=== PATIENT | male | born 1995 | race Hispanic/Latino ===

== ENCOUNTER 2018-02-05 01:02 | Emergency (ER) | payer BC ==
[2018-02-05 01:14] VITALS: O2SAT 100
[2018-02-05] MEDS ORDERED: Sodium Chloride 0.9% 1,000 ML IV STA (01:40)
--- NOTE | 2018-02-05 02:13 | ED PDOC ---
HPI:Nausea, Vomiting, Diarrhea Time Seen by Provider: 02/05/18 01:36 Chief Complaint (Nursing): Substance Abuse Chief Complaint (Provider): Substance Abuse History Per: Patient History/Exam Limitations: no limitations Onset/Duration Of Symptoms: Sudden Onset Current Symptoms Are (Timing): Still Present Context: Food Additional Complaint(s): 22 year old male arrives to ED with complaints of nausea and multiple episodes of vomiting 1 hours after ingesting marijuana brownies. He reports associated palpitations, dizziness, and lightheadedness. Otherwise, no fever, chills, cough, shortness of breath, or co-ingestion of other drugs. PMD: none provided Past Medical History Reviewed: Historical Data, Nursing Documentation, Vital Signs Vital Signs: Last Vital Signs Temp 97.6 F 02/05/18 01:11 Pulse 113 H 02/05/18 01:11 Resp 20 02/05/18 01:11 BP 156/77 H 02/05/18 01:11 Pulse Ox 100 02/05/18 01:11 - Medical History PMH: Asthma - Surgical History Surgical History: No Surg Hx - Family History Family History: States: Unknown Family Hx - Social History Current smoker - smoking cessation education provided: No Alcohol: None Drugs: Cannabis - Allergies Allergies/Adverse Reactions: Allergies Allergy/AdvReac Type Severity Reaction Status Date / Time cat dander AdvReac ITCHING Verified 02/05/18 01:11 Review of Systems ROS Statement: Except As Marked, All Systems Reviewed And Found Negative Constitutional: Negative for: Fever, Chills Cardiovascular: Positive for: Palpitations Respiratory: Negative for: Cough, Shortness of Breath Gastrointestinal: Positive for: Nausea, Vomiting Neurological: Positive for: Dizziness (and lightheaded) Physical Exam - Reviewed Nursing Documentation Reviewed: Yes Vital Signs Reviewed: Yes - Physical Exam Appears: Positive for: No Acute Distress, Uncomfortable Head Exam: Positive for: ATRAUMATIC, NORMAL INSPECTION, NORMOCEPHALIC Skin: Positive for: Pallor. Negative for: Normal Color ENT: Positive for: Normal ENT Inspection. Negative for: Pharyngeal Erythema, Tonsillar Swelling Neck: Positive for: Normal, Painless ROM Cardiovascular/Chest: Negative for: Regular Rate, Rhythm, Tachycardia Respiratory: Positive for: Normal Breath Sounds. Negative for: Wheezing, Respiratory Distress Gastrointestinal/Abdominal: Positive for: Normal Exam, Soft. Negative for: Tenderness Extremity: Positive for: Normal ROM (upper/lower) Neurologic/Psych: Positive for: Alert, Oriented. Negative for: Motor/Sensory Deficits - Laboratory Results Result Diagrams: 02/05/18 02:10 02/05/18 02:10 - ECG O2 Sat by Pulse Oximetry: 100 (RA) Pulse Ox Interpretation: Normal Medical Decision Making Medical Decision Making: Initial Impression: 22 year old male with nausea and vomiting in setting of recreational marijuana use. Initial Plan: * EKG * Labs * IV fluids * Zofran 4mg IV * Accucheck Time: 0231 --Accucheck: 271 Time: 0357 --Labs reviewed: positive for mild hypokalemia and elevated blood glucose, otherwise, normal given acute state of vomiting. Toxicology: (+) cannabis. Upon provider reevaluation, patient is medically stable, reports feeling improvement in symptoms and requires no further treatment in the ED at this time. Counseling was provided and all questions were answered regarding diagnosis. There is agreement to discharge plan. Return if symptoms persist or worsen. Clinical Impression: Hypokalemia; Adverse effect of cannabis ------ Scribe Attestation: Documented by Talita Ewing, acting as a scribe for Patrick Tipton MD. Provider Scribe Attestation: All medical record entries made by the Scribe were at my direction and personally dictated by me. I have reviewed the chart and agree that the record accurately reflects my personal performance of the history, physical exam, medical decision making, and the department course for this patient. I have also personally directed, reviewed, and agree with the discharge instructions and di sposition. Disposition - Clinical Impression Clinical Impression: Adverse effect of cannabis, Hypokalemia - Patient ED Disposition Is Patient to be Admitted: No Counseled Patient/Family Regarding: Studies Performed, Diagnosis - Disposition Disposition: Routine/Home Disposition Time: 03:57 Condition: STABLE Instructions: Hypokalemia, Marijuana Use and Addiction, Adverse Drug Reactions, Adult Forms: [facility] (Par[place]ayan)
[2018-02-05 02:46] LABS: HEMOGLOBIN 13.9 g/dL (12.0-18.0); MEAN CELL VOLUME 90.5 fl (80.0-94.0); MEAN CORPUSCULAR HGB CONC 34.2 g/dL (33.0-37.0); MEAN PLATELET VOLUME 8.1 fl (7.2-11.7); PLATELET COUNT 302 K/uL (130-400); RED CELL DISTRIBUTION WIDTH 13.2 % (11.5-14.5); WHITE BLOOD COUNT 15.3 K/uL (4.8-10.8)
[2018-02-05 03:01] LABS: ALB/GLOB RATIO 1.3 (1.0-2.1); ALBUMIN 4.1 g/dL (3.5-5.0); ALT/SGPT 24 U/L (21-72); AST/SGOT 20 U/L (17-59); BLOOD UREA NITROGEN 18 mg/dl (9-20); CALCIUM 8.7 mg/dL (8.4-10.2); GFR NON-AFRICAN AMERICAN > 60
[2018-02-05 03:02] LABS: NEUT % 70.2 % (50.0-75.0)
[2018-02-05 03:03] LABS: BASO % 0.4 % (0.0-2.0); EOS % 1.6 % (0.0-4.0); MONO % 6.8 % (0.0-10.0)
[2018-02-05 03:04] LABS: LYMPH # 3.2 K/uL (1.0-4.3); NEUT # 10.7 K/uL (1.8-7.0)
[2018-02-05 03:05] LABS: BASO # 0.1 K/uL (0.0-0.2); EOS # 0.2 K/uL (0.0-0.7)
[2018-02-05 03:24] LABS: BARBITURATES, UR NEGATIVE (NEGATIVE); OPIATES, UR NEGATIVE (NEGATIVE); PHENCYCLIDINE, UR NEGATIVE (NEGATIVE)
[2018-02-05 03:52] LABS: BENZODIAZEPINES, UR NEGATIVE (NEGATIVE)
[2018-02-05] MEDS ORDERED: Potassium Chloride 20 mEq ER Tab PO ONE (03:54)
[2018-02-05 04:20] VITALS: BP 113/61; PULSE 97; RESP 18; TEMP 97.9
--- NOTE | 2018-02-05 12:22 | CARD ---
APPROVED REPORT Date of service: 02/05/2018 EKG Measurement Heart [id number] <Conclusion> Normal sinus rhythm Incomplete right bundle branch block Borderline ECG
== END 2018-02-05 04:15 | disposition home or self-care (01) ==
LOC: H.ER 01:02
DX: E87.6 Hypokalemia (principal); F12.90 Cannabis use, unspecified, uncomplicated
CPT/HCPCS: 80053; 82948; 85025; 93005; 96360; 99283; G0480; J2405; J7030